=== PATIENT | female | born 1965 | race Caucasian/White ===

== ENCOUNTER → 2021-01-06 09:27 | Outpatient (BNVA) | payer OTHER, SELFPAY | PROVIDERS: Family Provider Family Medicine; Visit Provider Family Medicine | DX: Z13.6 Encounter for screening for cardiovascular disorders (principal); Z12.11 Encounter for screening for malignant neoplasm of colon; Z12.31 Encounter for screening mammogram for malignant neoplasm of breast; Z85.828 Personal history of other malignant neoplasm of skin | CPT/HCPCS: 80053; 80061; 85025 ==

== ENCOUNTER → 2021-01-12 07:48 | Outpatient (BNVA) | payer OTHER, SELFPAY | PROVIDERS: Family Provider Family Medicine; Visit Provider Family Medicine | DX: Z13.6 Encounter for screening for cardiovascular disorders (principal); Z85.828 Personal history of other malignant neoplasm of skin; Z12.11 Encounter for screening for malignant neoplasm of colon | CPT/HCPCS: 82270; G0328 ==

== ENCOUNTER → 2022-12-20 14:03 | Outpatient (BNVA) | payer OTHER, SELFPAY | PROVIDERS: Family Provider Family Medicine; PCP Family Medicine; Visit Provider Family Medicine | DX: Z01.419 Encounter for gynecological examination (general) (routine) without abnormal findings (principal); Z13.6 Encounter for screening for cardiovascular disorders; R53.83 Other fatigue | CPT/HCPCS: 80053; 80061; 84443; 85025; 88175 ==

== ENCOUNTER 2022-12-31 08:40 | Outpatient (CLI) | payer OTHER, SELFPAY ==
--- NOTE | 2022-12-31 08:50 | MM_ITS ---
WS: [id number] VIEWS: MLO and CC views both breasts. 3D digital tomosynthesis is also included in this exam. Comparison made with prior exam of 07/19/2008, 02/06/2014, 11/24/2016.. Findings: There was no sign of mass, architectural distortion or suspicious calcification in either breast. Th e breasts are extremely dense which lowers the sensitivity of mammography. MM/[place] [id number] Impression: BI-RADS: 2-Benign FOLLOW-UP: 1 Year Follow-up This mammogram was also analyzed by the Computer Aided Detection System R2 Imag e Exercise Physiologist Certified.
== END 2022-12-31 08:41 | disposition home or self-care (01) ==
LOC: RAD 08:48 → MOBLMAM 08:50
PROVIDERS: PCP Family Medicine; Visit Provider Family Medicine
DX: Z12.31 Encounter for screening mammogram for malignant neoplasm of breast (principal)
CPT/HCPCS: 77063; 77067

== ENCOUNTER 2023-09-26 09:07 | Emergency (ER) | payer OTHER, SELFPAY ==
--- NOTE | 2023-09-26 09:46 | W.ED.ANIMALB ---
HPI - Animal Bite General: Chief Complaint: Animal Bite Stated Complaint: cat got ahold of leg Time Seen by Provider: 09/26/23 09:08 Source: patient Mode of arrival: ambulatory Limitations: no limitations History of Present Illness: Patient is a 58-year-old female who presents to the ED today after she was told to come here by the health department for rabies PEP. She states yesterday she was feeding a feral cat who had had kittens in her barn when the cat attacked her left leg. She was wearing pants but states the cat was able to bite/scratch her through them. Tetanus is UTD-2020. She has noticed some mild ecchymosis around bites/scratches and states she bruises easily. Has not noticed any redness, swelling, drainage, streaking. No systemic symptoms. complaint: animal bite Onset (ago): day(s) (yesterday) Animal: cat Description of animal: wild animal and immunizations unknown Mechanism: bite and scratch Location - Extremities: Left: lower leg Context: unprovoked Associated symptoms: Reports no associated symptoms; Deny chills, fever(s) or headache(s) Related Data: Patient tetanus UTD: Yes Review of Systems Const: Denies: fever(s), chills, body aches, fatigue or malaise Musc: Denies: extremity swelling, joint pain or joint swelling Skin/Breast: Reports: other (multiple cat bites/scratches to Rocky DAVIDSON) Neuro: Denies: headache(s), numbness in extremities, weakness in extremities, sensory changes or difficulty walking FORMERLY [facility], 1928–1983 ED PFSH: Medical History History of skin cancer Spontaneous 1997 Surgical History History of lumpectomy of right breast benign - 1997 Social History Smoking and tobacco/nicotine status: never used tobacco/nicotine Second hand smoke exposure: No Alcohol intake: never Substance/Drug Use: never Physical Exam Const: COMMON NORMALS: no acute distress, average body habitus, patient oriented x3, no limitations, healthy appearing, alert and well nourished Extremity: COMMON NORMALS: full ROM, capillary refill normal, no joint enlargement and no clubbing, cyanosis or edema GENERAL: Yes normal exam except as noted LEFT LOWER EXTREMITY: Yes lower leg OTHER: patient has multiple scratches/small puncture wounds to L LE; some mild ecchymosis surrounding some of the wounds; no redness, swelling, drainage, streaking, or warmth noted Neuro: COMMON NORMALS: patient oriented x3, moves all extremities, no focal motor deficits and no sensory deficits noted SENSORIUM/ORIENTATION: Yes alert Skin: NARRATIVE SKIN EXAM: see above Course Vital Signs: Vital signs: Vital Signs Temperature 98.1 F 09/26/23 09:55 Pulse Rate 76 09/26/23 09:55 Respiratory Rate 18 09/26/23 09:55 Blood Pressure 130/63 09/26/23 09:55 Pulse Oximetry 99 09/26/23 09:55 Oxygen Delivery Me thod Room Air 09/26/23 09:55 MDM - Animal Bite Medical Decision Making Wounds overall appear well without signs of infection at this time. She was started on rabies PEP and given a schedule for repeat vaccinations. She will be placed on Augmentin. Tetanus is up-to-date. Return to ED precautions given. Differential Diagnosis Likely bite by animal, cat bite and rabies contact Medical Records I reviewed the patient's medical records. No radiology studies performed this visit Discharge Plan Discharge Patient Disposition: Home Clinical Impression: Cat bite of left lower leg Qualifiers: Encounter type: initial encounter Qualified Code(s): S81.852A - Open bite, left lower leg, initial encounter Condition: Stable Prescriptions: New amoxicillin-pot clavulanate 875-125 mg tablet 1 tab PO BID Qty: 14 0RF Discharge Orders: Discharge ED (Routine); Ordered 09/26/23 Ordered By: Brigid Kelly Referrals: Katia Ledezma DO [Primary Care Provider] - Patient Instructions: Rabies Vaccine (By injection), Rabies Immune Globulin (By injection), Animal Bite (ED) Activity Restrictions/Additional Instructions: As we discussed fill your antibiotics and start them immediately. Monitor for signs of infection such as redness, swelling, red streaking up your leg, purulent drainage, fevers, generally feeling worse or unwell, please seek medical reevaluation if these occur. As we discussed you will receive repeat rabies vaccinations on days 3, 7, and 14. You should have been provided a schedule to have these completed through our infusion center when applicable. Coding Level of Care Code ED Rn Observation for Slade Forbes
[2023-09-26 09:55] VITALS: BP 130/63; PULSE 76; RESP 18; TEMP 36.7; O2SAT 99; BMI 21.4
[2023-09-26] MEDS: rabies vaccine 2.5 unit SDV IM (10:55)
[2023-09-26] MEDS: rabies IG 300 unit/mL SDV 1 mL 1140 UNIT IM (10:55)
[2023-09-26 11:02] VITALS: BP 106/66; PULSE 77; RESP 16; O2SAT 98
== END 2023-09-26 11:04 | disposition home or self-care (01) ==
PROVIDERS: Emergency Provider Physician Assistant; PCP Family Medicine
DX: S81.852A Open bite, left lower leg, initial encounter (principal); W55.01XA Bitten by cat, initial encounter; Z23 Encounter for immunization; Z20.3 Contact with and (suspected) exposure to rabies; Z29.14 Encounter for prophylactic rabies immune globulin
CPT/HCPCS: 90375; 90471; 90675; 96372; 99283

== ENCOUNTER 2023-10-10 07:33 | Oncology outpatient (recurring) (ONCR) | payer OTHER, SELFPAY ==
[2023-09-29 07:53] VITALS: BP 101/54; PULSE 82; RESP 16; TEMP 37.2; O2SAT 97
[2023-10-03 07:54] VITALS: BP 104/52; PULSE 78; RESP 16; TEMP 37.1; O2SAT 96
[2023-10-03] MEDS: rabies vaccine 2.5 unit SDV IM (07:57)
[2023-10-10 07:49] VITALS: BP 109/69; PULSE 90; RESP 16; TEMP 36.7; O2SAT 97
[2023-10-10] MEDS: rabies vaccine 2.5 unit SDV IM (07:52)
== END 2023-10-11 23:59 | disposition home or self-care (01) ==
PROVIDERS: PCP Family Medicine; Referring Provider Physician Assistant; Visit Provider Physician Assistant
DX: Z53.9 Procedure and treatment not carried out, unspecified reason (principal); Z29.14 Encounter for prophylactic rabies immune globulin
CPT/HCPCS: 90471; 90675

== ENCOUNTER → 2023-11-08 11:22 | Outpatient (BNVA) | payer OTHER, SELFPAY | PROVIDERS: PCP Family Medicine; Visit Provider Family Medicine | DX: Z13.6 Encounter for screening for cardiovascular disorders (principal); Z00.00 Encounter for general adult medical examination without abnormal findings | CPT/HCPCS: 80053; 80061; 84443; 85025 ==